=== PATIENT | female | born 1930 | race Caucasian/White ===

== ENCOUNTER 2021-02-14 18:47 | Inpatient (IN) | payer OTHER, SELFPAY ==
[~2021-02-14] VITALS: Ht 157.5 cm; Wt 50.3 kg
[2021-02-14 18:53] VITALS: BP_SYST 186
[2021-02-14 20:37] LABS: BASOPHILS # (AUTO) 0.1 K/uL (0.0-0.2); BASOPHILS % (AUTO) 1.4 % (0.0-2.0); EOSINOPHILS # (AUTO) 0.2 K/uL (0.0-0.4); EOSINOPHILS % (AUTO) 2.2 % (0.0-4.0); HEMATOCRIT 31.2 % (36-48); HEMOGLOBIN 10.7 g/dL (12.0-16.0); LYMPHOCYTES # (AUTO) 0.7 K/uL (1.0-5.5); LYMPHOCYTES % (AUTO) 8.5 % (20.5-51.5); MEAN CORPUSCULAR HEMOGLOBIN 30 pg (27-31); MEAN CORPUSCULAR HGB CONC 34 % (32-36); MEAN CORPUSCULAR VOLUME 88 fL (79.0-98.0); MONOCYTES # (AUTO) 0.6 K/uL (0.0-1.0); NEUTROPHILS # (AUTO) 6.3 K/uL (1.8-7.7); NEUTROPHILS % (AUTO) 79.9 % (40.0-70.0); PLATELET COUNT (AUTO) 194 K/uL (130-430); RED BLOOD CELL COUNT(AUTO) 3.55 MIL/uL (4.2-6.2); RED CELL DISTRIBUTION WIDTH 15.1 % (9.0-15.0); WHITE BLOOD COUNT (AUTO) 7.8 K/uL (4.8-10.8)
[2021-02-14 20:39] LABS: ANION GAP 11 (5-15); CALCIUM 8.8 mg/dL (8.4-11.0); CHLORIDE 99 mmol/L (98-107); CREATININE 1.17 mg/dL (0.55-1.30); GLUCOSE 123 mg/dL (70-99); POTASSIUM 3.7 mmol/L (3.5-5.1); SODIUM SERUM 137 mmol/L (136-145); UREA NITROGEN, BLOOD 32 mg/dL (8-21)
[2021-02-14 20:45] LABS: ALANINE AMINOTRANSFERASE 34 U/L (12-78); ALBUMIN 3.4 g/dL (3.4-4.8); ASPARTATE AMINOTRANSFERASE 30 U/L (10-37); TOTAL BILIRUBIN 0.4 mg/dL (0.0-1.0)
[2021-02-14] MEDS ORDERED: ACETAMINOPHEN 325 MG TABLET PO PRN (22:00)
[2021-02-14] MEDS ORDERED: HYDROcodone/ACETAMIN 5-325 MG TAB (NORCO/ VICODIN) PO PRN (22:00)
[2021-02-14 23:00] VITALS: BP_SYST 190
[2021-02-14] MEDS: hydrALAZINE HCL 20 MG/ML VIAL IVP PRN (23:28)
[2021-02-15] MEDS ORDERED: LABETALOL 100 MG/ 20ML VIAL IVP ONE (01:15)
[2021-02-15] MEDS ORDERED: cloNIDine HCL 0.2 MG TABLET PO ONE (02:45)
[2021-02-15 04:51] VITALS: BP_SYST 149
[2021-02-15 06:49] LABS: BASOPHILS # (AUTO) 0.1 K/uL (0.0-0.2); BASOPHILS % (AUTO) 0.9 % (0.0-2.0); EOSINOPHILS # (AUTO) 0.1 K/uL (0.0-0.4); EOSINOPHILS % (AUTO) 0.7 % (0.0-4.0); HEMOGLOBIN 9.8 g/dL (12.0-16.0); LYMPHOCYTES # (AUTO) 0.8 K/uL (1.0-5.5); LYMPHOCYTES % (AUTO) 9.4 % (20.5-51.5); MEAN CORPUSCULAR HEMOGLOBIN 30 pg (27-31); MEAN CORPUSCULAR HGB CONC 34 % (32-36); MEAN CORPUSCULAR VOLUME 89 fL (79.0-98.0); MONOCYTES # (AUTO) 0.8 K/uL (0.0-1.0); MONOCYTES % (AUTO) 9.5 % (1.7-9.3); NEUTROPHILS # (AUTO) 6.6 K/uL (1.8-7.7); NEUTROPHILS % (AUTO) 79.5 % (40.0-70.0); PLATELET COUNT (AUTO) 165 K/uL (130-430); RED BLOOD CELL COUNT(AUTO) 3.28 MIL/uL (4.2-6.2); RED CELL DISTRIBUTION WIDTH 14.8 % (9.0-15.0); WHITE BLOOD COUNT (AUTO) 8.3 K/uL (4.8-10.8)
[2021-02-15 07:29] LABS: ALANINE AMINOTRANSFERASE 22 U/L (12-78); ALBUMIN 2.6 g/dL (3.4-4.8); ANION GAP 8 (5-15); ASPARTATE AMINOTRANSFERASE 21 U/L (10-37); CALCIUM 8.8 mg/dL (8.4-11.0); CHLORIDE 103 mmol/L (98-107); CREATININE 0.99 mg/dL (0.55-1.30); GLUCOSE 105 mg/dL (70-99); POTASSIUM 4.1 mmol/L (3.5-5.1); SODIUM SERUM 137 mmol/L (136-145); TOTAL BILIRUBIN 0.5 mg/dL (0.0-1.0); UREA NITROGEN, BLOOD 21 mg/dL (8-21)
[2021-02-15 08:00] VITALS: BP_SYST 156
[2021-02-15 11:33] VITALS: BP_SYST 150
[2021-02-15] MEDS ORDERED: ACETAMINOPHEN 325 MG TABLET PO PRN (12:30)
[2021-02-15] MEDS ORDERED: LORazepam 2 MG/ML VIAL IVP PRN (12:30)
[2021-02-15] MEDS ORDERED: HYDROcodone/ACETAMIN 5-325 MG TAB (NORCO/ VICODIN) PO PRN (12:30)
[2021-02-15] MEDS ORDERED: NALOXONE HCL 0.4 MG/ML AMP (NARCAN) IVP PRN ×2 (12:30)
[2021-02-15] MEDS ORDERED: ONDANSETRON HCL 4 MG/2 ML VIAL IVP PRN (12:30)
[2021-02-15] MEDS: hydrALAZINE HCL 25 MG TABLET PO SCH ×2 (13:37→21:13)
[2021-02-15] MEDS: NORMAL SALINE 5 ML DISP.SYRIN IVF SCH ×2 (13:38→21:14)
[2021-02-15] MEDS ORDERED: NORMAL SALINE 5 ML DISP.SYRIN IVF SCH (14:00)
[2021-02-15] MEDS: hydrALAZINE HCL 20 MG/ML VIAL IVP PRN (15:22)
[2021-02-15 15:24] VITALS: BP_SYST 188
[2021-02-15] MEDS ORDERED: amLODIPine BESYLATE 10 MG TABLET PO ONE (16:30)
[2021-02-15 18:59] VITALS: BP_SYST 160
[2021-02-15 20:00] VITALS: BP_SYST 167
[2021-02-15] MEDS: BACLOFEN 10 MG TABLET PO SCH (20:46)
[2021-02-15] MEDS ORDERED: CARVEDILOL 6.25 MG TABLET (COREG) PO SCH (21:00)
[2021-02-16 00:50] VITALS: BP_SYST 170
[2021-02-16 01:30] VITALS: BP_SYST 157
[2021-02-16] MEDS: ALBUTEROL SULFATE 0.083% 2.5 MG/3 ML VIAL.NEB INH PRN (06:29)
[2021-02-16] MEDS: hydrALAZINE HCL 25 MG TABLET PO SCH ×3 (06:44→20:59)
[2021-02-16] MEDS: NORMAL SALINE 5 ML DISP.SYRIN IVF SCH ×3 (06:44→20:59)
[2021-02-16 08:00] VITALS: BP_SYST 180
[2021-02-16] MEDS: PANTOPRAZOLE SODIUM 40 MG TAB PO SCH (08:24)
[2021-02-16] MEDS: ATORVASTATIN 20 MG TABLET PO SCH (08:24)
[2021-02-16] MEDS: amLODIPine BESYLATE 10 MG TABLET PO SCH (08:25)
[2021-02-16] MEDS ORDERED: FELODIPINE 5 MG TAB.SR.24H (PLENDIL) PO SCH (09:00)
[2021-02-16 09:28] LABS: BASOPHILS # (AUTO) 0.1 K/uL (0.0-0.2); BASOPHILS % (AUTO) 0.7 % (0.0-2.0); EOSINOPHILS % (AUTO) 0.4 % (0.0-4.0); HEMATOCRIT 32.6 % (36-48); HEMOGLOBIN 11.1 g/dL (12.0-16.0); LYMPHOCYTES # (AUTO) 0.8 K/uL (1.0-5.5); LYMPHOCYTES % (AUTO) 9.6 % (20.5-51.5); MEAN CORPUSCULAR HEMOGLOBIN 30 pg (27-31); MEAN CORPUSCULAR HGB CONC 34 % (32-36); MEAN CORPUSCULAR VOLUME 88 fL (79.0-98.0); MONOCYTES # (AUTO) 0.8 K/uL (0.0-1.0); MONOCYTES % (AUTO) 9.2 % (1.7-9.3); NEUTROPHILS # (AUTO) 6.6 K/uL (1.8-7.7); NEUTROPHILS % (AUTO) 80.1 % (40.0-70.0); PLATELET COUNT (AUTO) 189 K/uL (130-430); RED BLOOD CELL COUNT(AUTO) 3.72 MIL/uL (4.2-6.2); RED CELL DISTRIBUTION WIDTH 14.6 % (9.0-15.0); WHITE BLOOD COUNT (AUTO) 8.2 K/uL (4.8-10.8)
[2021-02-16 10:32] LABS: ALANINE AMINOTRANSFERASE 22 U/L (12-78); ALBUMIN 2.9 g/dL (3.4-4.8); ANION GAP 10 (5-15); ASPARTATE AMINOTRANSFERASE 14 U/L (10-37); CHLORIDE 101 mmol/L (98-107); CREATININE 0.97 mg/dL (0.55-1.30); GLUCOSE 95 mg/dL (70-99); PHOSPHORUS 3.8 mg/dL (2.7-4.5); POTASSIUM 3.8 mmol/L (3.5-5.1); SODIUM SERUM 136 mmol/L (136-145); TOTAL BILIRUBIN 0.5 mg/dL (0.0-1.0); UREA NITROGEN, BLOOD 16 mg/dL (8-21)
[2021-02-16] MEDS: CARVEDILOL 12.5 MG TABLET (COREG) PO SCH ×2 (10:37→20:58)
[2021-02-16 12:18] LABS: CHOLESTEROL 169 mg/dL (<200); HDL CHOLESTEROL 73 mg/dL (>55); LDL CHOLESTEROL 97 mg/dL (<100); TRIGLYCERIDES 50 mg/dL (30-150)
[2021-02-16 12:26] VITALS: BP_SYST 163
[2021-02-16 16:00] VITALS: BP_SYST 165
[2021-02-16 20:00] VITALS: BP_SYST 171
[2021-02-16] MEDS: HYDROcodone/ACETAMIN 10-325 MG TAB PO PRN (20:57)
[2021-02-16] MEDS: BACLOFEN 10 MG TABLET PO SCH (20:59)
[2021-02-17 00:43] VITALS: BP_SYST 154
[2021-02-17] MEDS: HYDROcodone/ACETAMIN 10-325 MG TAB PO PRN ×2 (02:50→08:39)
[2021-02-17] MEDS: hydrALAZINE HCL 25 MG TABLET PO SCH ×4 (06:23→22:44)
[2021-02-17] MEDS: NORMAL SALINE 5 ML DISP.SYRIN IVF SCH ×3 (06:24→22:45)
[2021-02-17 06:32] LABS: BASOPHILS % (AUTO) 0.5 % (0.0-2.0); HEMATOCRIT 29.1 % (36-48); HEMOGLOBIN 9.9 g/dL (12.0-16.0); LYMPHOCYTES # (AUTO) 0.6 K/uL (1.0-5.5); LYMPHOCYTES % (AUTO) 5.6 % (20.5-51.5); MEAN CORPUSCULAR HEMOGLOBIN 30 pg (27-31); MEAN CORPUSCULAR HGB CONC 34 % (32-36); MEAN CORPUSCULAR VOLUME 88 fL (79.0-98.0); MONOCYTES % (AUTO) 10.5 % (1.7-9.3); NEUTROPHILS # (AUTO) 8.2 K/uL (1.8-7.7); NEUTROPHILS % (AUTO) 83.4 % (40.0-70.0); PLATELET COUNT (AUTO) 150 K/uL (130-430); RED BLOOD CELL COUNT(AUTO) 3.31 MIL/uL (4.2-6.2); RED CELL DISTRIBUTION WIDTH 14.7 % (9.0-15.0); WHITE BLOOD COUNT (AUTO) 9.9 K/uL (4.8-10.8)
[2021-02-17 06:40] LABS: ALANINE AMINOTRANSFERASE 19 U/L (12-78); ALBUMIN 2.5 g/dL (3.4-4.8); ANION GAP 11 (5-15); ASPARTATE AMINOTRANSFERASE 13 U/L (10-37); CALCIUM 8.2 mg/dL (8.4-11.0); CHLORIDE 98 mmol/L (98-107); CREATININE 1.05 mg/dL (0.55-1.30); GLUCOSE 111 mg/dL (70-99); POTASSIUM 3.7 mmol/L (3.5-5.1); SODIUM SERUM 134 mmol/L (136-145); TOTAL BILIRUBIN 0.9 mg/dL (0.0-1.0); UREA NITROGEN, BLOOD 18 mg/dL (8-21)
[2021-02-17 08:31] VITALS: BP_SYST 156
[2021-02-17] MEDS: CARVEDILOL 12.5 MG TABLET (COREG) PO SCH ×2 (08:37→21:36)
[2021-02-17] MEDS: PANTOPRAZOLE SODIUM 40 MG TAB PO SCH (08:37)
[2021-02-17] MEDS: ATORVASTATIN 20 MG TABLET PO SCH (08:38)
[2021-02-17] MEDS: amLODIPine BESYLATE 10 MG TABLET PO SCH (08:38)
[2021-02-17 11:45] VITALS: BP_SYST 166
[2021-02-17 15:44] VITALS: BP_SYST 156
[2021-02-17] MEDS: ALBUTEROL SULFATE 0.083% 2.5 MG/3 ML VIAL.NEB INH PRN (16:14)
[2021-02-17] MEDS: BACLOFEN 10 MG TABLET PO SCH (21:36)
[2021-02-18] VITALS: BP_SYST 154
[2021-02-18 00:33] LABS: BODY FLUID SOURCE/ TYPE PLEURAL
[2021-02-18 00:34] LABS: APPEARANCE,SPUN,BODY FLUID CLEAR (CLEAR); BF APPEARANCE UNSPUN HAZY (CLEAR); BODY FLUID COLOR YELLOW (LT YELLOW); BODY FLUID TOTAL VOLUME 550 mL; SOURCE/TYPE ,BODY FLUID PLEURAL; WBC, BODY FLUID 673 /uL
[2021-02-18 00:35] LABS: EOSINOPHIL, BODY FLUID 0 %; LYMPHOCYTES, BODY FLUID 52 %; MONOCYTES,BODY FLUID 44 %; NEUTROPHIL, BODY FLUID 4 %; RBC, BODY FLUID 646 /uL
[2021-02-18] MEDS: NORMAL SALINE 5 ML DISP.SYRIN IVF SCH ×2 (06:42→14:00)
[2021-02-18] MEDS: hydrALAZINE HCL 25 MG TABLET PO SCH ×2 (06:43→14:27)
[2021-02-18 08:00] VITALS: BP_SYST 166
[2021-02-18] MEDS: ATORVASTATIN 20 MG TABLET PO SCH (08:29)
[2021-02-18] MEDS: PANTOPRAZOLE SODIUM 40 MG TAB PO SCH (08:29)
[2021-02-18] MEDS: amLODIPine BESYLATE 10 MG TABLET PO SCH (08:29)
[2021-02-18] MEDS: CARVEDILOL 12.5 MG TABLET (COREG) PO SCH (08:30)
[2021-02-18 09:52] LABS: BODY FLUID GLUCOSE 123 mg/dL
[2021-02-18 11:03] VITALS: BP_SYST 166
[2021-02-18 11:35] VITALS: BP_SYST 103
[2021-02-18 11:36] VITALS: BP_SYST 144
[2021-02-18 14:10] VITALS: BP_SYST 140
== END 2021-02-18 15:45 | disposition hospice, home (50) | DRG 291 ==
LOC: SED 18:47 → STU 21:46 → SMU 02-17 10:41
PROVIDERS: ADMIT Internal Medicine Hospice and Palliative Medicine; ATTEND Internal Medicine Hospice and Palliative Medicine
PROC: 0W993ZZ Drainage of Right Pleural Cavity, Percutaneous Approach (ICD-10-PCS; principal; 2021-02-17)
DX: I11.0 Hypertensive heart disease with heart failure (principal); I50.33 Acute on chronic diastolic (congestive) heart failure; J91.8 Pleural effusion in other conditions classified elsewhere; I48.91 Unspecified atrial fibrillation; D64.9 Anemia, unspecified; R79.89 Other specified abnormal findings of blood chemistry; F03.90 Unspecified dementia, unspecified severity, without behavioral disturbance, psychotic disturbance, mood disturbance, and anxiety; K21.9 Gastro-esophageal reflux disease without esophagitis; E78.5 Hyperlipidemia, unspecified; Z20.822 Contact with and (suspected) exposure to COVID-19; Z88.0 Allergy status to penicillin; Z87.19 Personal history of other diseases of the digestive system; Z91.14 Patient's other noncompliance with medication regimen; Z85.828 Personal history of other malignant neoplasm of skin; Z51.5 Encounter for palliative care
CPT/HCPCS: 32555; 36415; 71045; 76604; 80048; 80053; 80061; 82947; 83735; 83880; 84100; 84157; 84443; 84484; 85025; 87040-TC; 87070-TC; 88108; 88305; 88313; 89051-TC; 89060-TC; 93005; 93306; 94640; 96365; 96375; 99285; C1729; G0378; J0360; J1956; J2060; J3490; J7613